=== PATIENT | female | born 1990 | race Caucasian/White ===

== ENCOUNTER 2021-08-22 18:15 | Emergency (ER) | payer MEDICAID, SELFPAY ==
[2021-08-22 18:16] VITALS: BP 114/89; PULSE 114; RESP 17; TEMP 35.7; O2SAT 96; BMI 20.1
--- NOTE | 2021-08-22 18:44 | RAD_ITS ---
INDICATION: Pain, vomiting EXAMINATION/TECHNIQUE: X-RAY - upright and supine XR Abdomen Series W/ Chest 1 View COMPARISON: None. FINDINGS: --Chest: LINES/DEVICES: None. LUNGS: No consolidation, edema or effusion. No pneumothorax. MEDIASTINUM AND CARDIOVASCULAR STRUCTURES: Cardiac silhouette not enlarged. Central airways and mediastinal contour are unremarkable. BONES AND SOFT TISSUES: No acute findings. --Abdomen: BOWEL GAS PATTERN: Non-obstructive. No bowel or stomach distention. FREE AIR: None visualized. ORGANOMEGALY: Not seen. Note of surgical clips right upper quadrant from prior cholecystectomy. CALCIFICATIONS: No abnormal calcifications observed. BONES AND SOFT TISSUES: Rudimentary ribs at T12, variant anatomy. RAD/Acute Abdomen Inc Chest IMPRESSION: Negative chest and abdominal series. Electronically Signed: Iain Magallanes DO at 20:58 EDT ,
--- NOTE | 2021-08-22 18:45 | EDS_ITS ---
HPI HPI - GI History of Present Illness Chief Complaint: Abd Pain Informant: patient Narrative Narrative: Nausea and vomiting for the past 6 days. No hematemesis. Today noted abdominal cramping. No diarrhea. Last bowel movement was a week ago Tuesday symptoms starting. She has been having gas throughout. Cholecystectomy last year at [facility]. No history of bowel obstructions. No urinary symptoms. Last menstrual period a month ago. Denies fevers cough. History of anxiety depression on medications. Prior similar symptoms: No PFSH PFSH Home Medications hyoscyamine sulfate [Levsin/SL] 0.125 mg SUBLINGUAL Q6H PRN #10 tab 08/22/21 [Rx Last Taken Unknown] ondansetron 4 mg PO Q6H PRN #10 tab 08/22/21 [Rx Last Taken Unknown] Allergy/AdvReac Type Severity Reaction Status Date / Time Sulfa (Sulfonamide Allergy Rash Verified 08/22/21 18:15 Antibiotics) Social History Smoking Status: Never smoker ROS ROS ED Constitutional Constitutional ED: Denies chills, fever(s) or sweats Eyes Eyes: Denies change in vision ENT ENT ED: Denies dysphagia or sore throat Cardiovascular Cardiovascular: Denies chest pain, leg edema, palpitations or racing heartbeat Respiratory/Chest Respiratory/Chest: Denies cough, dyspnea or dyspnea on exertion Gastrointestinal Gastrointestinal: Reports abdominal pain, nausea and vomiting; Denies diarrhea Genitourinary Genitourinary ED: Denies dysuria, hematuria or urinary frequency Musculoskeletal Musculoskeletal: Denies back pain, extremity pain or neck pain Integumentary Denies rash or wounds Neurologic Neurologic: Denies headache(s), paresthesias or weakness EXAM Physical Exam Const Vital Signs: 08/22/21 18:16 08/22/21 21:55 Temperature 96.3 F L Temperature Source Temporal Pulse Rate 114 H 106 H Respiratory Rate 17 18 Blood Pressure 114/89 H 124/95 H Blood Pressure Mean 97 104 Pulse Ox 96 96 Oxygen Delivery Method Room Air Room Air Positive well nourished and well developed General Appearance ED: well developed and NAD HEENT Reports dry mucous membranes HEENT Narrative: Mild dry mucosal membranes. normocephalic and atraumatic Mouth ED: Yes dry mucous membranes Mouth: dry mucous membranes Eyes PERRL, EOMs intact bilaterally and conjunctivae normal General Eye ED: Yes normal appearance of both eyes Neck no lymphadenopathy and supple General: Negative for tenderness Chest Wall Chest: Negative for tenderness Resp normal respiratory effort and normal air movement Effort and Inspection: symmetric chest movement; Negative for respiratory distress Cardio regular rate, regular rhythm and no murmurs Rate: tachycardic Peripheral Pulses: pulses 2+ throughout GI normal to inspection, nondistended, normoactive bowel sounds and non-tender GI Narrative: Soft abdomen no reproducible tenderness. Negative Linda's McBurney's tenderness. No rebound or guarding. Palpation: Negative for guarding or rebound tenderness present Back/Spine no CVA tenderness and no thoracic nor lumbar tenderness Extremity normal to inspection General Extremety ED: Negative for edema or tenderness General Extremity: Negative for edema Neuro oriented x3 and no sensory deficits noted Sensorium / Orientation: awake and alert Skin no rashes or lesions noted and no wounds MDM MDM MDM Narrative Medical decision making narrative: Patient tachycardic dry mucosal membranes on exam. Nonsurgical abdomen. States no bowel movements however has been having flatus. Abdominal series reviewed by myself and read by radiology shows no acute process. Abdominal labs are stable BUN/creatinine ratio greater than 20 in definition for likely dehydration. hCG negative. Urine looked contaminated, she is asymptomatic urine culture sent we will not treat at this time. She is treated with Zofran and Levsin. Reevaluation clinically improved she is able tolerate p.o. intake. Prescriptions were written for symptom control she continue oral hydration. Return precautions. All questions were answered. Lab Data Attestation: I reviewed the patient's lab results. Labs: Laboratory Results - last 24 hr 08/22/21 08/22/21 08/22/21 18:55 18:55 18:55 WBC 10.7 RBC 5.35 Hgb 17.4 H Hct 49.0 H MCV 91.6 MCH 32.5 H MCHC 35.5 RDW Std Deviation 43.3 RDW Coeff of Alan 12.9 Plt Count 324 MPV 9.4 Immature Gran % (Auto) 0.300 Neut % (Auto) 83.6 H Lymph % (Auto) 11.4 L Bert[place] % (Auto) 4.5 Eos % (Auto) 0.0 Baso % (Auto) 0.2 Absolute Neuts (auto) 9.0 H Absolute Lymphs (auto) 1.22 Nucleated RBC % 0 Sodium 135 L Potassium 3.2 L Chloride 96 L Carbon Dioxide 28.0 Anion Gap 11 BUN 24 H Creatinine 0.75 Estim Creat Clear Calc 102.17 Est GFR (MDRD) Af Amer 115 Est GFR (MDRD) Non-Af 95 BUN/Creatinine Ratio 32.0 H Glucose 139 H Calcium 10.2 H Total Bilirubin 1.60 H Direct Bilirubin 0.63 H AST 66 H ALT 66 H Alkaline Phosphatase 109 Total Protein 8.5 H Albumin 4.2 Globulin 4.3 H Lipase 39 L Serum , Qual NEGATIVE Urine Color Urine Clarity Urine pH Ur Specific [place] Urine Protein Urine Glucose (UA) Urine Ketones Urine Occult Blood Urine Nitrite Urine Bilirubin Urine Urobilinogen Ur Leukocyte Esterase Urine RBC Urine WBC Ur Squamous Epith Cells Urine Bacteria Urine Mucus Urine Trichomonas 08/22/21 19:00 WBC RBC Hgb Hct MCV MCH MCHC RDW Std Deviation RDW Coeff of Alan Plt Count MPV Immature Gran % (Auto) Neut % (Auto) Lymph % (Auto) [place] % (Auto) Eos % (Auto) Baso % (Auto) Absolute Neuts (auto) Absolute Lymphs (auto) Nucleated RBC % Sodium Potassium Chloride Carbon Dioxide Anion Gap BUN Creatinine Estim Creat Clear Calc Est GFR (MDRD) Af Amer Est GFR (MDRD) Non-Af BUN/Creatinine Ratio Glucose Calcium Total Bilirubin Direct Bilirubin AST ALT Alkaline Phosphatase Total Protein Albumin Globulin Lipase Serum , Qual Urine Color Yellow Urine Clarity Cloudy Urine pH 5.0 Ur Specific [place] 1.025 Urine Protein 30 H Urine Glucose (UA) Normal Urine Ketones 150 A* Urine Occult Blood 10 H Urine Nitrite Negative Urine Bilirubin 1 H Urine Urobilinogen 4 H Ur Leukocyte Esterase 500 H Urine RBC 0 SEEN Urine WBC 5-10 SEEN Ur Squamous Epith Cells 10-25 SEEN Urine Bacteria 1+ Urine Mucus 0 SEEN Urine Trichomonas 0-5 SEEN Radiography Diagnostic Testing: Clinical Impression(s) from Imaging Studies Acute Abdomen Series 08/22/21 18:44 IMPRESSION: Negative chest and abdominal series. Electronically Signed: Iain Magallanes DO at 20:58 EDT , Discharge Plan Triage Chief Complaint: Abd Pain ED Provider: Paulie Sequeira Dx/Rx/DC Orders Clinical Impression: Nausea and vomiting, Dehydration Instructions: ED Diet for Vomiting or ... Prescriptions: New ondansetron 4 mg tablet,disintegrating 4 mg PO Q6H PRN (Reason: nausea and vomiting) Qty: 10 RF: 0 hyoscyamine sulfate [Levsin/SL] 0.125 mg tablet, sublingual 0.125 mg sublingual Q6H PRN (Reason: vomiting) Qty: 10 RF: 0 Primary Care Provider: [facility] Referrals: [facility] [Primary Care Provider] - 3-5 Days if not improving Disposition Disposition: Home, Self Care Discharge Date/Time: 08/22/21 22:25
[2021-08-22] MEDS: 0.9% Normal Saline 1,000 ML 1000 ML IV (18:56)
[2021-08-22] MEDS: Ondansetron 4 MG/2 ML Vial IV (18:57)
[2021-08-22] MEDS: Hyoscyamine Sulfate 0.125 MG Tablet SL (19:04)
[2021-08-22 19:13] LABS: Absolute Lymphocyte Count 1.22 X10^3/uL (0.83-4.51); Basophil# 0.02 X10^3/uL; Basophil% 0.2 % (0-1); Hemoglobin 17.4 g/dL (12.0-15.0); Lymphocyte # 1.22 X10^3/ul (0.83-4.51); Lymphocyte % 11.4 % (19-41); Mean Corp Hgb Conc 35.5 g/dL (32-36); Mean Corpuscular Hgb 32.5 pg (27.0-32.0); Mean Corpuscular Volume 91.6 fL (81-99); Mean Platelet Vol. 9.4 fl (6.2-12.0); Monocyte# 0.48 X10^3/uL; Monocyte% 4.5 % (0-10); NRBC Flagged by Analyzer 0 % (0-5); Neutrophil # 8.96 X10^3/uL (2.7-7.7); Neutrophil % 83.6 % (47-70); Platelet Count 324 K/mm3 (150-450); RBC Distribution Width CV 12.9 % (11.6-14.6); RBC Distribution Width SD 43.3 fl (35.1-43.9); Red Blood Count 5.35 M/mm3 (4.2-5.4); White Blood Count 10.7 K/mm3 (4.4-11.0)
[2021-08-22 19:18] LABS: Mucous, Urine 0 SEEN /hpf (<or=2+); Red Blood Cells-Urine 0 SEEN /hpf (0-5)
[2021-08-22 19:20] LABS: Color, Urine Yellow (Yellow); Glucose, Dipstick Normal (Normal); Leukocyte Esterase-Dipstick 500 /ul (Negative); Nitrite-Dipstick Negative (Negative); Occult Blood-Urine 10 /ul (Negative); Protein-Dipstick 30 mg/dl (Negative); Specific Gravity, Urine 1.025 (1.002-1.030); Urine Clarity Cloudy (Clear); Urine Urobilinogen 4 mg/dl (Normal)
[2021-08-22 19:26] LABS: Ketone-Dipstick 150 mg/dl (Negative); Urine Bilirubin Dipstick 1 mg/dL (Negative)
[2021-08-22 19:28] LABS: Squamous Epithelial Cells - UA 10-25 SEEN /hpf (5-10)
[2021-08-22 19:29] LABS: Bacteria 1+ /hpf (None Seen); White Blood Cells 5-10 SEEN /hpf (0-5)
[2021-08-22 19:30] LABS: Trichomonas 0-5 SEEN /hpf (None Seen)
[2021-08-22 19:31] LABS: Internal QC Validated? YES +Cl - CLEAR BKGD; Pregnancy, Serum, hCG Quali. NEGATIVE Negative
[2021-08-22 19:38] LABS: AST(SGOT) 66 U/L (15-37); Alanine Aminotransfer ALT/SGPT 66 U/L (13-56); Albumin, Serum 4.2 g/dL (3.2-5.0); Alkaline Phosphatase 109 U/L (45-117); Anion Gap 11 (5-15); BUN 24 mg/dL (7-18); Bilirubin, Direct 0.63 mg/dL (0.00-0.30); Calcium,Total 10.2 mg/dL (8.5-10.1); Chloride 96 mmol/L (98-107); Creatinine, Serum 0.75 mg/dL (0.55-1.02); EST Glomerular Filtration Rate 95 mL/min (>60); Est Glom Filt Rate - Afr Amer 115 mL/min (>60); Estimated Creatinine Clearance 102.17 ml/min; Globulin 4.3 g/dL (2.2-4.2); Glucose 139 mg/dL (74-106); Lipase 39 U/L (73-393); Potassium 3.2 mmol/L (3.5-5.1); Protein, Total 8.5 g/dL (6.4-8.2); Sodium Level 135 mmol/L (136-145)
[2021-08-22 21:55] VITALS: BP 124/95; PULSE 106; RESP 18; O2SAT 96
== END 2021-08-22 22:25 | disposition home or self-care (01) ==
PROVIDERS: Emergency Provider Emergency Medicine; Visit Provider Emergency Medicine
DX: R11.2 Nausea with vomiting, unspecified (principal); E86.0 Dehydration; R14.3 Flatulence
CPT/HCPCS: 74022; 80048; 80076; 81001; 83690; 84703; 85025; 87086; 87088; 96361; 96374; 99281; J7030; A4216; J2405

== ENCOUNTER 2021-08-24 12:14 | Emergency (ER) | payer MEDICAID, SELFPAY ==
[2021-08-24 12:14] VITALS: BP 117/91; PULSE 83; RESP 16; TEMP 36.6; O2SAT 98; BMI 20.9
--- NOTE | 2021-08-24 13:48 | EX.ED.DYSGE1 ---
HPI <Dr. Lul Robison MD - Last Filed: 08/26/21 16:43> History of Present Illness Chief Complaint: Nausea/Vomiting Detail of Chief Complaint: Abdominal pain with nausea and vomiting Informant: patient Onset/Context/Timing Onset: Days (9 to 10 days ago) Context: Sudden Onset Timing: Intermittent Quality: . Pain with vomiting. Location: Lysed abdomen Current Severity: Mild Maximum Severity: Moderate Worsened by: Vomiting Relieved by: Nothing Associated Symptoms Associated Symptoms: Dry mouth, thirst, weight loss Narrative Narrative: Patient is a 31-year-old woman status post bilateral tubal ligation who presents with nausea and vomiting that started 10 days ago. She was seen on August 21. Work-up at that time was unremarkable. Of note patient endorses marijuana use. She says not much . When asked how much she does endorse daily use. She denies symptoms of . She denies fever, chills night sweats. Denies double vision, blurred vision loss of vision. Denies ringing in ears decreased hearing. Denies rhinorrhea, postnasal drainage or congestion. She denies sore throat. She denies chest pain or shortness of breath. She denies diarrhea. She endorses decreased urine output. She denies dysuria or hematuria. She denies myalgias or arthralgias. She denies any ill contact. Prior similar symptoms: Yes Recent Illness/Hospitalization: Yes PFSH <Dr. Lul Robison MD - Last Filed: 08/26/21 16:43> PFSH Medical History Anxiety Depression GERD (gastroesophageal reflux disease) Marijuana smoker Smoker Home Medications hyoscyamine sulfate [Levsin/SL] 0.125 mg SUBLINGUAL Q6H PRN #10 tab 08/22/21 [Rx Last Taken Unknown] ondansetron 4 mg PO Q6H PRN #10 tab 08/22/21 [Rx Last Taken Unknown] Allergy/AdvReac Type Severity Reaction Status Date / Time Sulfa (Sulfonamide Allergy Rash Verified 08/24/21 12:16 Antibiotics) Social History (Updated 08/24/21 @ 13:[address] Lul Robison MD) household members: none Smoking Status: Current every day smoker tobacco type: cigarettes and e-cigarettes substance use type: marijuana ROS <Dr. Lul Robison MD - Last Filed: 08/26/21 16:43> ROS ED Constitutional Constitutional ED: Reports weight loss; Denies chills, fever(s), subjective or sweats Eyes Eyes: Denies blurry vision, change in vision or diplopia ENT ENT ED: Denies ear pain, rhinorrhea or sore throat Cardiovascular Cardiovascular: Denies chest pain, orthopnea, palpitations, paroxysmal nocturnal dyspnea or racing heartbeat Respiratory/Chest Respiratory/Chest: Denies cough, dyspnea, dyspnea on exertion, orthopnea or paroxysmal nocturnal dyspnea Gastrointestinal Gastrointestinal: Reports abdominal pain, nausea and vomiting; Denies constipation, diarrhea or melena Genitourinary Genitourinary ED: Denies dysuria, hematuria or urinary frequency Musculoskeletal Musculoskeletal: Denies arthralgias, myalgias or neck pain Integumentary Denies Abrasions or rash Neurologic Neurologic: Reports weakness; Denies headache(s) or paresthesias Psychiatric Psychiatric: Reports depression; Denies anxiety or suicidal thoughts Endocrine Endocrinology: Denies polydipsia, polyphagia or polyuria EXAM <Dr. Lul Robison MD - Last Filed: 08/26/21 16:43> Physical Exam Const Vital Signs: 08/24/21 12:14 08/24/21 15:24 Temperature 98 F Temperature Source Temporal Pulse Rate 83 87 Respiratory Rate 16 16 Blood Pressure 117/91 H 108/71 Blood Pressure Mean 99 83 Pulse Ox 98 95 Oxygen Delivery Method Room Air Room Air Positive well nourished and well developed General Appearance ED: well developed, pallor and other Patient is thin. She appears pale. ; Negative for cyanotic or diaphoretic HEENT Reports TM's clear and dry mucous membranes HEENT Narrative: Nares patent. Uvula midline. There is no erythema or exudate the posterior pharynx. Negative for trauma or tenderness Tympanic Membrane ED: Yes TM's clear Mouth ED: Yes dry mucous membranes Mouth: dry mucous membranes Eyes PERRL and EOMs intact bilaterally General Eye ED: Negative for pale conjunctiva or scleral icterus Neck no lymphadenopathy, supple and no JVD General: Negative for tenderness Chest Wall palpation of chest normal Resp normal respiratory effort and clear to auscultation bilaterally Cardio regular rate, regular rhythm, S1 normal heart sound, S2 normal heart sound and no murmurs GI non-distended and no masses; Negative for non-tender or hepatosplenomegaly Inspection: Negative for abdominal distention Auscultation: hypoactive bowel sounds Palpation: soft and tender LUQ and RUQ; Negative for guarding or rebound tenderness present Back/Spine no CVA tenderness Cervical Spine: Negative for cervical spine tenderness Thoracic Spine / Upper Back: Negative for thoracic spinal tenderness or paraspinal muscle tenderness Extremity normal to inspection General Extremety ED: Negative for edema or tenderness General Extremity: Negative for edema Neuro oriented x3, CN's II-XII intact bilaterally and no sensory deficits noted Sensorium / Orientation: alert Motor Exam: strength 5/5 throughout Psych Mood & Affect: depressed Skin no rashes or lesions noted and no wounds General Skin Exam: pallor; Negative for jaundice <Dr. Darryl Landis, DO - Last Filed: 08/24/21 16:37> Physical Exam Const Vital Signs: 08/24/21 12:14 08/24/21 15:24 Temperature 98 F Temperature Source Temporal Pulse Rate 83 87 Respiratory Rate 16 16 Blood Pressure 117/91 H 108/71 Blood Pressure Mean 99 83 Pulse Ox 98 95 Oxygen Delivery Method Room Air Room Air MDM <Dr. Lul Robison MD - Last Filed: 08/26/21 16:43> [facility] Narrative Medical decision making narrative: The documentation for visit on August 21 was reviewed. Work-up was unremarkable. Suspect her hyperemesis is due to marijuana use/abuse. She was treated with cyclic vomiting order meds. Will repeat BMP to assess renal function and anion gap. Patient was reassessed at 1450. She received a first round of meds for cyclic vomiting. She is reports improvement. She is now receiving the Benadryl Compazine infusion. She will need reassessment and review of labs prior to discharge. Patient made and told that since she smokes marijuana daily this is most likely the cause. Lab Data Labs: Laboratory Results - last 24 hr 08/24/21 14:35 Sodium 134 L Potassium 2.9 L Chloride 89 L Carbon Dioxide 30.0 Anion Gap 15 BUN 25 H Creatinine 0.75 Estim Creat Clear Calc 106.41 Est GFR (MDRD) Af Amer 115 Est GFR (MDRD) Non-Af 95 BUN/Creatinine Ratio 33.4 H Glucose 118 H Calcium 10.2 H <Dr. Darryl Landis DO - Last Filed: 08/24/21 16:37> [facility] Narrative Medical decision making narrative: Patient signed out to me for reevaluation of nausea and vomiting as well as follow-up on BMP. The patient's BMP does show him prerenal azotemia as well as hypokalemia with potassium 2.9. Patient reevaluated at 1630 and was feeling improved. She was given 40 mEq of potassium. At this point patient is stable to be discharged home and already has antiemetics sent to her pharmacy. She is given return precautions. Lab Data Attestation: I reviewed the patient's lab results. Labs: Laboratory Results - last 24 hr 08/24/21 14:35 Sodium 134 L Potassium 2.9 L Chloride 89 L Carbon Dioxide 30.0 Anion Gap 15 BUN 25 H Creatinine 0.75 Estim Creat Clear Calc 106.41 Est GFR (MDRD) Af Amer 115 Est GFR (MDRD) Non-Af 95 BUN/Creatinine Ratio 33.4 H Glucose 118 H Calcium 10.2 H Discharge Plan Triage Chief Complaint: Nausea/Vomiting ED Provider: Lul Robison Dx/Rx/DC Orders Clinical Impression: Cannabis abuse with intoxication with complication, Hyperemesis, Acute dehydration Prescriptions: No Action ondansetron 4 mg tablet,disintegrating 4 mg PO Q6H PRN (Reason: nausea and vomiting) Qty: 10 RF: 0 hyoscyamine sulfate [Levsin/SL] 0.125 mg tablet, sublingual 0.125 mg sublingual Q6H PRN (Reason: vomiting) Qty: 10 RF: 0 Primary Care Provider: [facility] Referrals: [place] [Primary Care Provider] - 3-5 Days Activity Restrictions/Additional Instructions: The cause of your vomiting is daily use of marijuana. You need to discontinue use of marijuana. Disposition Disposition: Home, Self Care Discharge Date/Time: 08/24/21 17:07
[2021-08-24] MEDS: LORazepam 2 MG/ML Syringe 0.5 MG IV (14:25)
[2021-08-24] MEDS: Ondansetron 4 MG/2 ML Vial IV (14:26)
[2021-08-24] MEDS: Famotidine 200 MG/20 ML MDV 20 MG in 0.9% Normal Saline (Pres. free 8 ML 300 MG IV (14:26)
[2021-08-24 15:12] LABS: Anion Gap 15 (5-15); BUN 25 mg/dL (7-18); BUN/Creat Ratio 33.4 RATIO (10-20); Calcium,Total 10.2 mg/dL (8.5-10.1); Chloride 89 mmol/L (98-107); Creatinine, Serum 0.75 mg/dL (0.55-1.02); EST Glomerular Filtration Rate 95 mL/min (>60); Est Glom Filt Rate - Afr Amer 115 mL/min (>60); Estimated Creatinine Clearance 106.41 ml/min; Glucose 118 mg/dL (74-106); Potassium 2.9 mmol/L (3.5-5.1); Sodium Level 134 mmol/L (136-145)
[2021-08-24 15:24] VITALS: BP 108/71; PULSE 87; RESP 16; O2SAT 95
[2021-08-24] MEDS: Potassium Chloride Oral Soln 20 MEQ/15 ML UDC 40 MEQ PO (16:40)
[2021-08-24 16:42] VITALS: BP 109/81; PULSE 96; RESP 16; O2SAT 96
== END 2021-08-24 17:07 | disposition home or self-care (01) ==
PROVIDERS: Emergency Provider Emergency Medicine; Visit Provider Emergency Medicine
DX: F12.129 Cannabis abuse with intoxication, unspecified (principal); R11.2 Nausea with vomiting, unspecified; E86.0 Dehydration; E87.6 Hypokalemia; K21.9 Gastro-esophageal reflux disease without esophagitis; F32.A Depression, unspecified; F41.9 Anxiety disorder, unspecified; F17.210 Nicotine dependence, cigarettes, uncomplicated
CPT/HCPCS: 80048; 96365; 96375; 99283; J7050; A4216; J2405; J3490

== ENCOUNTER 2021-10-25 12:33 | Emergency (ER) | payer MEDICAID, SELFPAY ==
[2021-10-25 12:34] VITALS: BP 129/98; PULSE 116; RESP 18; TEMP 36.9; O2SAT 96; BMI 19.8
--- NOTE | 2021-10-25 12:41 | ED.RN ---
PT. STATES NO PLAN, EVERYONE WOULD EB BETTER OFF. GOT MY KIDS TAKEN AWAY, MIXED UP WITH THE WRONG GEE. BOYFRIEND AND SELF, ALONG WITH BOYFRIEND KID BEING THREATENED. MOTHER HAS CUSTODY OF KIDS ON OCTOBER 08.
--- NOTE | 2021-10-25 12:45 | ED.RN ---
PT. HAS FRESH SHALLOW LACERATION FREITAS TO NECK. ALSO HAS MULTIPLE BRUISING AND ABRASIONS TO BLE.
--- NOTE | 2021-10-25 12:52 | EX.ED.VIS.PS ---
HPI HPI - Psych History of Present Illness Chief Complaint: Suicidal Informant: patient Onset/Context/Timing Onset: Weeks (2.5) Context: Gradual Onset Conflict: Family Timing: Continuous Worsened by: Situational factors Relieved by: Nothing Associated Symptoms Associated Symptoms - Psych: Positive for Depressed, Change in sleeping, Decreased Interest, Hopelessness and Suicidal Thoughts; Negative for Paranoia, Visual Hallucinations and Auditory Hallucinations Specific plan (suicidal thought): Patient denies any plan for suicide. Narrative Narrative: Patient presents with depression and suicidal ideations that been getting worse over the past 2-1/2 weeks. Patient states they have gradually gotten worse. Patient states she lost custody of her kids at that time. Patient states she feels like people would be better off if she were not alive. Patient denies any definite plan for suicide. Patient denies any auditory or visual hallucinations. Patient states she has not been sleeping for the past several days. PFSH PFSH Medical History Anxiety Depression GERD (gastroesophageal reflux disease) Marijuana smoker Smoker Home Medications hyoscyamine sulfate [Levsin/SL] 0.125 mg SUBLINGUAL Q6H PRN #10 tab 08/22/21 [Rx Last Taken Unknown] ondansetron 4 mg PO Q6H PRN #10 tab 08/22/21 [Rx Last Taken Unknown] citalopram 20 mg PO DAILY 10/25/21 [History Last Taken Unknown] hydroxyzine pamoate 50 mg PO TID 10/25/21 [History Last Taken Unknown] Allergy/AdvReac Type Severity Reaction Status Date / Time Sulfa (Sulfonamide Allergy Rash Verified 10/25/21 12:33 Antibiotics) Social History household members: none Smoking Status: Current every day smoker tobacco type: cigarettes and e-cigarettes substance use type: marijuana ROS ROS ED Constitutional Constitutional ED: Denies chills or fever(s) Eyes Eyes: Denies blurry vision or change in vision ENT ENT ED: Denies rhinorrhea or sore throat Cardiovascular Cardiovascular: Denies chest pain or palpitations Respiratory/Chest Respiratory/Chest: Denies cough or dyspnea Gastrointestinal Gastrointestinal: Denies nausea or vomiting Genitourinary Genitourinary ED: Denies dysuria or hematuria Musculoskeletal Musculoskeletal: Denies back pain or neck pain Integumentary Reports Abrasions; Denies abscess or rash Neurologic Neurologic: Denies headache(s) or weakness Psychiatric Psychiatric: Reports depression and suicidal thoughts Allergic/Immunologic Allergic/Immunologic ED: Denies mouth swelling or urticaria EXAM Physical Exam Const Vital Signs: 10/25/21 12:34 10/25/21 15:19 Temperature 98.5 F Temperature Source Temporal Pulse Rate 116 H 101 H Respiratory Rate 18 16 Blood Pressure 129/98 H 114/80 Blood Pressure Mean 108 91 Pulse Ox 96 95 Oxygen Delivery Method Room Air Room Air Positive well nourished, well developed and unkempt General Appearance ED: unkempt, well developed and NAD HEENT normocephalic and atraumatic Neck supple and no JVD Resp normal respiratory effort and clear to auscultation bilaterally Cardio no murmurs Rate: regular rate Rhythm: regular rhythm GI non-tender and non-distended Auscultation: normoactive bowel sounds Palpation: soft Extremity normal to inspection General Extremety ED: Negative for edema or tenderness General Extremity: Negative for edema Neuro oriented x3, CN's II-XII intact bilaterally and no sensory deficits noted Sensorium / Orientation: alert Motor Exam: strength 5/5 throughout Psych mental status grossly normal Appearance: unkempt Activity / Motor Behavior: avoids eye contact Speech: minimal and soft Mood & Affect: depressed and flat affect Thought Content: suicidality Skin Rashes: no rashes Trauma: abrasion MDM MDM MDM Narrative Medical decision making narrative: Suicide precautions were maintained. CBC was within normal limits. Basic metabolic profile was essentially within normal limits. Total CPK was within normal limits. Urinalysis does not show any evidence of urinary tract infection. Serum alcohol level was normal. Serum hCG was negative. Urine tox screen was positive for methamphetamines, amphetamines, and cannabinoids. Patient is medically cleared for psychiatric evaluation. Crisis will be in to evaluate the patient. Patient will likely need to be admitted to a psychiatric facility. Care of the patient was turned over to the oncoming physician pending psychiatric evaluation by crisis. Lab Data Attestation: I reviewed the patient's lab results. Labs: Laboratory Results - last 24 hr 10/25/21 10/25/21 10/25/21 13:05 13:11 13:11 WBC 6.4 RBC 3.90 L Hgb 12.7 Hct 37.8 MCV 96.9 MCH 32.6 H MCHC 33.6 RDW Std Deviation 50.5 H RDW Coeff of Alan 14.2 Plt Count 291 MPV 8.4 Immature Gran % (Auto) 0.300 Neut % (Auto) 61.6 Lymph % (Auto) 29.9 [place] % (Auto) 6.9 Eos % (Auto) 1.1 Baso % (Auto) 0.2 Absolute Neuts (auto) 3.9 Absolute Lymphs (auto) 1.91 Nucleated RBC % 0 Sodium 139 Potassium 3.2 L Chloride 105 Carbon Dioxide 25.0 Anion Gap 9 BUN 21 H Creatinine 0.92 Estim Creat Clear Calc 82.04 Est GFR (MDRD) Af Amer 90 Est GFR (MDRD) Non-Af 75 BUN/Creatinine Ratio 22.8 H Glucose 71 L Calcium 9.7 Total Creatine Kinase 108 Serum , Qual Urine Color Yellow Urine Clarity Clear Urine pH 7.0 Ur Specific [place] 1.010 Urine Protein 30 H Urine Glucose (UA) Normal Urine Ketones 5 H Urine Occult Blood Negative Urine Nitrite Negative Urine Bilirubin 1 H Urine Urobilinogen 8 H Ur Leukocyte Esterase 100 H Urine RBC 0 SEEN Urine WBC 5-10 SEEN Ur Squamous Epith Cells 5-10 SEEN Urine Bacteria 0 SEEN Urine Mucus 2+ Urine Opiates Screen Urine Methadone Screen Ur Barbiturates Screen Ur Phencyclidine Scrn Ur Amphetamines Screen MDMA (Ecstasy) Screen U Benzodiazepines Scrn Urine Cocaine Screen U Cannabinoids Screen Ur Drug Screen Comment Ethyl Alcohol 10/25/21 10/25/21 10/25/21 13:11 13:11 13:11 WBC RBC Hgb Hct MCV MCH MCHC RDW Std Deviation RDW Coeff of Alan Plt Count MPV Immature Gran % (Auto) Neut % (Auto) Lymph % (Auto) [place] % (Auto) Eos % (Auto) Baso % (Auto) Absolute Neuts (auto) Absolute Lymphs (auto) Nucleated RBC % Sodium Potassium Chloride Carbon Dioxide Anion Gap BUN Creatinine Estim Creat Clear Calc Est GFR (MDRD) Af Amer Est GFR (MDRD) Non-Af BUN/Creatinine Ratio Glucose Calcium Total Creatine Kinase Serum , Qual NEGATIVE Urine Color Urine Clarity Urine pH Ur Specific [place] Urine Protein Urine Glucose (UA) Urine Ketones Urine Occult Blood Urine Nitrite Urine Bilirubin Urine Urobilinogen Ur Leukocyte Esterase Urine RBC Urine WBC Ur Squamous Epith Cells Urine Bacteria Urine Mucus Urine Opiates Screen NEGATIVE Urine Methadone Screen NEGATIVE Ur Barbiturates Screen NEGATIVE Ur Phencyclidine Scrn NEGATIVE Ur Amphetamines Screen POSITIVE H MDMA (Ecstasy) Screen POSITIVE H U Benzodiazepines Scrn NEGATIVE Urine Cocaine Screen NEGATIVE U Cannabinoids Screen POSITIVE H Ur Drug Screen Comment Ethyl Alcohol 12.0 Discharge Plan Triage Chief Complaint: Suicidal ED Provider: Rey Womack Dx/Rx/DC Orders Clinical Impression: Depression, Passive suicidal ideations Prescriptions: No Action ondansetron 4 mg tablet,disintegrating 4 mg PO Q6H PRN (Reason: nausea and vomiting) Qty: 10 RF: 0 hyoscyamine sulfate [Levsin/SL] 0.125 mg tablet, sublingual 0.125 mg sublingual Q6H PRN (Reason: vomiting) Qty: 10 RF: 0 hydroxyzine pamoate 50 mg Capsule 50 mg PO TID RF: 0 citalopram 20 mg Tablet 20 mg PO DAILY RF: 0 [facility] Care Provider[facility] [facility] [Primary Care Provider] -
[2021-10-25 13:26] LABS: Absolute Lymphocyte Count 1.91 X10^3/uL (0.83-4.51); Absolute Neutrophil Count 3.9 X10^3/uL (2.0-7.7); Basophil# 0.01 X10^3/uL; Basophil% 0.2 % (0-1); Eosinophil# 0.07 X10^3/uL; Eosinophils% 1.1 % (0-5); Hematocrit 37.8 % (37-47); Hemoglobin 12.7 g/dL (12.0-15.0); Lymphocyte # 1.91 X10^3/ul (0.83-4.51); Lymphocyte % 29.9 % (19-41); Mean Corp Hgb Conc 33.6 g/dL (32-36); Mean Corpuscular Hgb 32.6 pg (27.0-32.0); Mean Corpuscular Volume 96.9 fL (81-99); Mean Platelet Vol. 8.4 fl (6.2-12.0); Monocyte# 0.44 X10^3/uL; Monocyte% 6.9 % (0-10); NRBC Flagged by Analyzer 0 % (0-5); Neutrophil # 3.93 X10^3/uL (2.7-7.7); Neutrophil % 61.6 % (47-70); Platelet Count 291 K/mm3 (150-450); RBC Distribution Width CV 14.2 % (11.6-14.6); RBC Distribution Width SD 50.5 fl (35.1-43.9); White Blood Count 6.4 K/mm3 (4.4-11.0)
[2021-10-25 13:43] LABS: Anion Gap 9 (5-15); BUN 21 mg/dL (7-18); BUN/Creat Ratio 22.8 RATIO (10-20); CPK Total, Creatine Kinase 108 U/L (26-192); Calcium,Total 9.7 mg/dL (8.5-10.1); Chloride 105 mmol/L (98-107); Creatinine, Serum 0.92 mg/dL (0.55-1.02); EST Glomerular Filtration Rate 75 mL/min (>60); Est Glom Filt Rate - Afr Amer 90 mL/min (>60); Estimated Creatinine Clearance 82.04 ml/min; Glucose 71 mg/dL (74-106); Potassium 3.2 mmol/L (3.5-5.1); Sodium Level 139 mmol/L (136-145)
[2021-10-25 13:45] LABS: Internal QC Validated? YES +Cl - CLEAR BKGD; Pregnancy, Serum, hCG Quali. NEGATIVE Negative
[2021-10-25 13:48] LABS: Bacteria 0 SEEN /hpf (None Seen); Red Blood Cells-Urine 0 SEEN /hpf (0-5)
[2021-10-25 13:53] LABS: Amphetamine Urine VISTA POSITIVE (<1000 ng/mL); Barbiturate Urine VISTA NEGATIVE (< 200 ng/mL); Benzodiazepine Urine VISTA NEGATIVE (< 200 ng/mL); Cocaine Urine VISTA NEGATIVE (< 300 ng/mL); Ecstacy Urine VISTA POSITIVE (< 500 ng/mL); Methadone Urine VISTA NEGATIVE (< 300 ng/mL); PCP Urine VISTA NEGATIVE (< 25 ng/mL); THC Urine VISTA POSITIVE (< 50 ng/mL); Vista UDS pH Range 8
[2021-10-25 14:14] LABS: Color, Urine Yellow (Yellow); Glucose, Dipstick Normal (Normal); Ketone-Dipstick 5 mg/dl (Negative); Leukocyte Esterase-Dipstick 100 /ul (Negative); Nitrite-Dipstick Negative (Negative); Occult Blood-Urine Negative /ul (Negative); Protein-Dipstick 30 mg/dl (Negative); Urine Clarity Clear (Clear); Urine Urobilinogen 8 mg/dl (Normal)
[2021-10-25 14:18] LABS: Urine Bilirubin Dipstick 1 mg/dL (Negative)
[2021-10-25 14:34] LABS: Mucous, Urine 2+ /hpf (<or=2+); Squamous Epithelial Cells - UA 5-10 SEEN /hpf (5-10); White Blood Cells 5-10 SEEN /hpf (0-5)
[2021-10-25 15:19] VITALS: BP 114/80; PULSE 101; RESP 16; O2SAT 95
--- NOTE | 2021-10-25 16:54 | EKG12_ITS ---
Test Reason : [facility] Blood Pressure : / mmHG Vent. Rate : 083 BPM Atrial Rate : 083 BPM P-R Int : 154 ms QRS Dur : 090 ms QT Int : 410 ms P-R-T Axes : 053 067 055 degrees QTc Int : 481 ms Normal sinus rhythm with sinus arrhythmia Prolonged QT Abnormal ECG Confirmed by CHRIS LARKIN, SONIA ([id number]), editor in chief newspaper VOLODYMYR AMADOR ([id number]) on 10/27/2021 7:14:27 AM Referred By: SILVER Confirmed By:SONIA PEREZ MD
[2021-10-25 20:50] VITALS: PULSE 96; RESP 14; O2SAT 97
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
[2021-10-26] VITALS (16 sets, daily range): BP systolic 100–124; BP diastolic 59–71; PULSE 70–84; RESP 16; TEMP 36.6–37.4; O2SAT 94–100
--- NOTE | 2021-10-26 09:57 | NURSING ---
PER KATHY WITH CRISIS [facility]. THEY CANNOT MOVE FORWARD WITH OTHER REFERRALS UNTIL THE [facility] DECLIN[facility] PT
--- NOTE | 2021-10-26 16:52 | CM.ED ---
Social Work Note Pt has been accepted to [facility] ([facility]). Accepting physician is Dr. Joel Cavanaugh. RN to RN number [phone] option 1. Pt is going to Dual Diagnosis Unit. Dania Jolely MSW, WELLNESS TRAINER
== END 2021-10-26 18:56 ==
PROVIDERS: Emergency Provider Emergency Medicine; Visit Provider Emergency Medicine
DX: R45.851 Suicidal ideations (principal); F32.A Depression, unspecified; K21.9 Gastro-esophageal reflux disease without esophagitis; F17.210 Nicotine dependence, cigarettes, uncomplicated; Z79.899 Other long term (current) drug therapy
CPT/HCPCS: 80048; 80307; 81001; 82077; 82550; 84703; 85025; 87811; 93005; 99285

== ENCOUNTER 2021-11-10 08:13 | Emergency (ER) | payer OTHER, SELFPAY ==
[2021-11-10 08:14] VITALS: BP 122/91; PULSE 110; RESP 18; TEMP 36.4; O2SAT 97; BMI 19.5
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
--- NOTE | 2021-11-10 08:42 | ED.RN ---
SUNNY BERMUDEZ RN FROM [facility] WOULD LIKE TO COORDINATE FOR TRANSPORT TO [place]. [phone]
[2021-11-10 09:06] LABS: Absolute Lymphocyte Count 2.73 X10^3/uL (0.83-4.51); Absolute Neutrophil Count 4.1 X10^3/uL (2.0-7.7); Basophil# 0.02 X10^3/uL; Basophil% 0.3 % (0-1); Eosinophil# 0.07 X10^3/uL; Eosinophils% 0.9 % (0-5); Hematocrit 37.9 % (37-47); Hemoglobin 13.1 g/dL (12.0-15.0); Lymphocyte # 2.73 X10^3/ul (0.83-4.51); Lymphocyte % 36.7 % (19-41); Mean Corp Hgb Conc 34.6 g/dL (32-36); Mean Corpuscular Hgb 32.9 pg (27.0-32.0); Mean Corpuscular Volume 95.2 fL (81-99); Mean Platelet Vol. 8.6 fl (6.2-12.0); Monocyte# 0.49 X10^3/uL; Monocyte% 6.6 % (0-10); NRBC Flagged by Analyzer 0 % (0-5); Neutrophil # 4.12 X10^3/uL (2.7-7.7); Neutrophil % 55.4 % (47-70); Platelet Count 299 K/mm3 (150-450); RBC Distribution Width CV 12.7 % (11.6-14.6); RBC Distribution Width SD 44.8 fl (35.1-43.9); Red Blood Count 3.98 M/mm3 (4.2-5.4); White Blood Count 7.4 K/mm3 (4.4-11.0)
[2021-11-10 09:19] LABS: Anion Gap 6 (5-15); BUN 16 mg/dL (7-18); BUN/Creat Ratio 20.9 RATIO (10-20); Calcium,Total 9.4 mg/dL (8.5-10.1); Chloride 100 mmol/L (98-107); Creatinine, Serum 0.76 mg/dL (0.55-1.02); EST Glomerular Filtration Rate 93 mL/min (>60); Est Glom Filt Rate - Afr Amer 112 mL/min (>60); Estimated Creatinine Clearance 98.16 ml/min; Glucose 87 mg/dL (74-106); Potassium 3.6 mmol/L (3.5-5.1); Sodium Level 135 mmol/L (136-145)
[2021-11-10 09:29] LABS: Internal QC Validated? YES +Cl - CLEAR BKGD; Pregnancy, Serum, hCG Quali. NEGATIVE Negative
[2021-11-10 09:32] LABS: Alcohol, Blood (Medical)-Serum < 3.0 mg/dL
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
[2021-11-10 11:21] LABS: Vista UDS pH Range 5
--- NOTE | 2021-11-10 11:21 | CM.ED ---
ANNABEL called [facility] [phone] x [phone] Bed Control and left voice mail message requesting a call back. ANNABEL called [facility] [phone] Transfer [facility] [id number]. ANNABEL spoke to Cony at [facility] requesting a psych bed. Diagnosis of Bipolar. Cony said that a CM will call this director underwriter sales back. She requested referral packet be sent to [phone] (fax number for [facility] Center). ANNABEL updated RN and MD. Plan: [facility]
[2021-11-10 11:35] LABS: Amphetamine Urine VISTA POSITIVE (<1000 ng/mL); Barbiturate Urine VISTA NEGATIVE (< 200 ng/mL); Benzodiazepine Urine VISTA NEGATIVE (< 200 ng/mL); Cocaine Urine VISTA NEGATIVE (< 300 ng/mL); Ecstacy Urine VISTA NEGATIVE (< 500 ng/mL); Methadone Urine VISTA NEGATIVE (< 300 ng/mL); PCP Urine VISTA NEGATIVE (< 25 ng/mL)
[2021-11-10 11:36] LABS: THC Urine VISTA POSITIVE (< 50 ng/mL)
--- NOTE | 2021-11-10 11:38 | EKG12_ITS ---
Test Reason : [facility] Blood Pressure : / mmHG Vent. Rate : 082 BPM Atrial Rate : 082 BPM P-R Int : 152 ms QRS Dur : 096 ms QT Int : 432 ms P-R-T Axes : 068 082 061 degrees QTc Int : 504 ms Normal sinus rhythm Prolonged QT Abnormal ECG Confirmed by GAB LARKIN, EUGENE ([id number]), editor newspaper VOLODYMYR AMADOR ([id number]) on 11/11/2021 8:51:15 AM Referred By: TAISHA Confirmed By:EUGENE DE GUZMAN MD
--- NOTE | 2021-11-10 12:12 | CM.ED ---
ANNABEL faxed patient's EKG and tox screen to [facility]. ANNABEL called Jeremías Machuca at [facility] and updated him regarding the referral being faxed to [facility]. Eulalia HENNESSY
--- NOTE | 2021-11-10 12:49 | CM.ED ---
ANNABEL received call from Suresh at [facility]. He was working on patient's referral. Suresh said that he is working on patient coming to their ED and then [facility] for psych evaluation and it would appear that the plan is for inpatient psych. ANNABEL reviewed presentation and labs with Suresh. ANNABEL then faxed referral to Suresh specifically at [phone]. ANNABEL updated supervisor plate formingANETA HENNESSY
[2021-11-10 13:23] VITALS: RESP 18
[2021-11-10 14:16] VITALS: BP 117/79; PULSE 86; RESP 16; TEMP 36.9; O2SAT 96
--- NOTE | 2021-11-10 14:26 | CM.ED ---
Addendum entered by Narciso Mukherjee 11/10/21 14:34: ANNABEL updated patient that she was accepted at [facility] and waiting transport. Narciso HENNESSY Original Note: ANNABEL Note ANNABEL received a phone call from Suresh at [facility]. Patient has been accepted and will be going to [facility]. RN to RN is [phone]. Accepting MD is Roseanne and the medical doctor that gave clearance is Berna. Patient will need BLS for transport. Patient also needs to come with hard copy of chart. The pink slip needs to say [facility] ( [facility]). Suresh is working on transport for patient. ANNABEL called [facility] ([phone]) and inquired about pink slip and could it have [facility] and [facility]. ANNABEL spoke to Sierra initially and she said that it has to be a pink slip with only [facility] on it and then this real estate underwriter spoke to gardening supervisor Armen. ANNABEL explained that there was training on serial pink slipping and facilities accept pink slip with [facility] and their name on it. Armen said that they have not had that training and they are NOT doing it that way. He indicated the [place] SLIP MUST ONLY HAVE [facility] ONLY name on it. completed pink slip. Narciso HENNESSY
--- NOTE | 2021-11-10 15:01 | CM.ED ---
Addendum entered by Eulalia Mukherjee 11/10/21 15:22: ANNABEL received call from Suresh at [facility] confirming that this underwriter got message that patient's ambulance arrival was 1630. ANNABEL called Jeremías MUJICA RN at [facility] and advised in voice mail that patient was leaving [facility] for [place] at 1630. Eulalia HENNESSY Original Note: ANNABEL received voice mail from Suresh at [facility]. Suresh stated in voice mail that he arranged for transport and the ETA is 16:30. ANNABEL updated Radha, hospital unit coordinator and wardrobe specialty worker Pepper. Eulalia HENNESSY
[2021-11-10 15:04] VITALS: RESP 16
== END 2021-11-10 16:15 ==
PROVIDERS: Emergency Provider Emergency Medicine; Visit Provider Emergency Medicine
DX: F32.A Depression, unspecified (principal); X83.8XXA Intentional self-harm by other specified means, initial encounter; S10.91XA Abrasion of unspecified part of neck, initial encounter; Y92.59 Other trade areas as the place of occurrence of the external cause; F41.9 Anxiety disorder, unspecified; R45.87 Impulsiveness; K21.9 Gastro-esophageal reflux disease without esophagitis; F17.210 Nicotine dependence, cigarettes, uncomplicated
CPT/HCPCS: 36415; 80048; 80307; 82077; 84703; 85025; 87811; 93005; 99285